=== PATIENT | male | born 1965 | race Caucasian/White ===

== ENCOUNTER 2017-09-12 20:28 | Emergency (ER) | payer SELFPAY ==
--- NOTE | 2017-09-12 20:35 | ED.PDOC ---
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 No pain on weight bearing. Timing/Duration: just prior to arrival, this evening Severity: moderate Location: feet - right Improving Factors: nothing Worsening Factors: movement Associated Symptoms: other - see hpi Allergies/Adverse Reactions: Allergies NO KNOWN ALLERGY Allergy (Verified 09/12/17 20:43) Home Medications: Ambulatory Orders NK [NK] 09/12/17 Review of Systems - Review of Systems All other Systems: Reviewed and Negative, No Change from Baseline Family Medical History - Family History Father Family History: Unknown Physical Exam - Physical Exam General Appearance: Alert, Comfortable, No apparent distress Eyes, Ears, Nose, Throat Exam: normal ENT inspection Neck: non-tender, full range of motion, supple Cardiovascular/Chest: normal peripheral pulses, regular rate, rhythm, no murmur Respiratory: chest non-tender, lungs clear, normal breath sounds Gastrointestinal/Abdominal: non tender, soft, no organomegaly Back Exam: normal inspection Extremity: other - 3 cm laceration top of foot Neurologic: no motor/sensory deficits, alert, oriented x 3 Skin Exam: warm/dry Skin Problem Location: lower extremities - right foot Skin Character: other - laceration Procedures - Laceration/Wound Repair Right Foot Wound Length (cm): 3 Wound's Depth, Shape: linear Wound Explored: foreign body removed - 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 from 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 Copy, Patient Portal Self Enrollment Instructions: DI for Laceration Repair, How to Care for a Laceration After Repair Home Medications: Ambulatory Orders NK [NK] 09/12/17 Additional Instructions: REMOVAL OF SUTURES 09/24/2017 [facility] ER
[2017-09-12] MEDS ORDERED: TETANUS,DIPHTHERIA,PERTUSSIS 1 EA SYG IM ONE (20:44)
[2017-09-12] MEDS ORDERED: CEPHALEXIN MONOHYDRATE 500 MG CAP PO ONE (20:45)
[2017-09-12] MEDS ORDERED: LIDOCAINE 1% 10 ML VIAL INJ ONE (20:48)
[2017-09-12] MEDS ORDERED: CHLORHEXIDINE GLUCONATE 4 % 15 ML UD TOP ONE (20:51)
[2017-09-12] MEDS ORDERED: NEOMYCIN-BACITRACIN-POLYMYXIN 0.9 GM UD TOP ONE (21:02)
[2017-09-12] MEDS ORDERED: HYDROCOD/APAP 7.5/325 (ER DISP) #3 TAB PO ONE (21:18)
[2017-09-12 21:45] VITALS: TEMP 98.3
[2017-09-12 21:57] VITALS: BP 126/75; O2SAT 99
== END 2017-09-12 21:35 | disposition home or self-care (01) ==
LOC: ER 20:28
DX: S91.311A Laceration without foreign body, right foot, initial encounter (principal); Z23 Encounter for immunization; W29.8XXA Contact with other powered hand tools and household machinery, initial encounter; Y92.89 Other specified places as the place of occurrence of the external cause

== ENCOUNTER 2020-02-19 19:24 | Emergency (ER) | payer SELFPAY ==
[~2020-02-19 19:24] MED LIST: EPINEPHrine INJ 0.1 MG/ML 10 ML SYG ONE
--- NOTE | 2020-02-19 19:44 | ED.PDOC ---
History of Present Illness - General Chief Complaint: Trauma Stated Complaint: left hip pain from fall, abd pain- ascites Time Seen by Provider: 02/19/20 19:35 Source: patient, EMS notes reviewed, EMS Exam Limitations: no limitations - History of Present Illness Initial Comments: Pt is a 55 yo male with PMH of alcoholism who presents to ED after GLF at home and was unable to get up due to left hip pain. Pt states he lives with his mother and states he has not been told he has cirrhosis or ascites, but has not seen a physician in several years. States he was in his house and suddenly got light headed and passed out. He remembers waking up on the floor and was unable to get up so family called EMS. He denies JHA, neck or back pain, nausea, CP or SOB. Allergies/Adverse Reactions: Allergies NO KNOWN ALLERGY Allergy (Verified 03/21/19 13:35) Home Medications: Ambulatory Orders NK 09/12/17 Review of Systems - Review of Systems Constitutional: Denies: chills, fever EENTM: Denies: nose congestion, throat pain Respiratory: Denies: cough, short of breath Cardiology: States: syncope. Denies: chest pain, edema, palpitations Gastrointestinal/Abdominal: Denies: diarrhea, nausea, vomiting Genitourinary: Denies: dysuria, frequency, hematuria Musculoskeletal: States: other - left hippain. Denies: back pain Skin: States: other - abrsions to LUE Neurological: Denies: headache, paresthesia All other Systems: Reviewed and Negative Past Medical History (General) - Patient Medical History Hx Seizures: No Hx Stroke: No Hx Dementia: No Hx Asthma: No Hx of COPD: No Hx Cardiac Disorders: No Hx Congestive Heart Failure: No Hx Pacemaker: No Hx Hypertension: No Hx Thyroid Disease: No Hx Diabetes: No Hx Gastroesophageal Reflux: No Hx Renal Disease: No Hx Cancer: No Hx of HIV: No Hx MRSA: No Surgical History: noncontributory - Vaccination History Hx Tetanus, Diphtheria Vaccination: No Hx Influenza Vaccination: No - Social History Hx Tobacco Use: Yes Hx Alcohol Use: Yes Hx Substance Use: No Hx Substance Use Treatment: No Hx Depression: No - Female History Patient : No Family Medical History - Family History Father Family History: Unknown Physical Exam - Physical Exam General Appearance: Alert, No apparent distress, Other - Pt is pale appearing and jaundiced. Has distended abdomen c/w ascites Eye Exam: bilateral scleral icterus Ears, Nose, Throat: normal pharynx Neck: non-tender, full range of motion, supple, other - No vertebral tenderness to neck or back Respiratory: chest non-tender, lungs clear, normal breath sounds, no respiratory distress, no accessory muscle use Cardiovascular/Chest: regular rate, rhythm, other - Trace pretibial edema bilaterally Gastrointestinal/Abdominal: other - Tense ascites. No abdominal tenderness Back Exam: no vertebral tenderness Extremity: other - Pt has FROM in BUE. There are abrasions to lateral left shoulder and upper arm. There is tenderness to left hip. He does have FROM in BLE Neurologic: no motor/sensory deficits, alert, normal mood/affect Skin Exam: jaundice, pallor Progress - Progress Progress: 02/19/20 20:15 Pt sister in law arrived to ED. She states that he was told 15 years ago that he has cirrhosis and liver disease and if he did not stop drinking alcohol he would from it. He has continued to drink alcohol daily and has been admitted to [facility] several times for hepatic encephalopathy, GI bleed and other complications of cirrhosis. 02/19/20 20:24 Pt has known h/o cirrhosis. Presents after syncopal episode at home. he is vomiting dark, coffee ground emesis x1 that is gastriccult positive. I have started Protonic and Octreotiide. Plan discussed with patient and sister in law to transfer for syncope, GI bleed and he agrees with plan of care. 02/19/20 21:23 D/W Dr. Ramires at [facility] via transfer line. Accepts transfer. Requests starting PRBC and can give in route. 02/19/20 21:59 Pt had mild tachycardia, but otherwise stable VS in ED visit. Protonix and octreotide started due to cirrrhosis with upper GI bleed. Pt was accepted for transfer and we were waiting to get blood to initiate blood transfusion prior to transport and patient lost pulse. Was in [facility]A. Please see ACLS flow sheet for full details. he was given multiple doses of Epi. He had large amount of blood coming from stomach into mouth during CPR. Suctioned frequently and intubated with glidescope with 8.0 ETT. Patient never had return of circulation and time of pronounced at 2154. I updated family here during resuscitation and she voiced that the family had been expecting this for some time due to his poor health. - Results/Orders Results/Orders: CT BRAIN TECHNIQUE: Contiguous axial CT images obtained through the brain without IV contrast. This exam was performed according to our department optimization program which includes automated exposure control, adjustment of the mA and/or kv according to patient size and/or use of iterative reconstruction technique. FINDINGS: The ventricles and sulci are mildly prominent. Minimal microvascular ischemic changes. No mass lesions. No acute hemorrhage. Atherosclerotic calcifications. Old lacunar infarct in the left caudate. There is mucosal thickening/opacification within multiple right mastoid air cells. The appearance is slightly improved compared to the previous study. No depressed calvarial fractures. IMPRESSION: No acute intracranial abnormality is identified. There is mucosal thickening/opacification within multiple right mastoid air cells. The appearance is slightly improved compared to the previous study. CT C SPINE IMPRESSION: No acute cervical spine injury. Stable chronic degenerative changes result in central canal and neural foraminal stenoses as described. LEFT SHOULDER No LUE fracture or dislocation. Possible left 8th rib fracture LEFT ELBOW EXAM DESCRIPTION: Elbow, left 2 Views CLINICAL HISTORY: 55 years Male trauma COMPARISON: None. TECHNIQUE: Two views of the left elbow. FINDINGS: The lateral view is suboptimal. Evaluation of the elbow fat pads is therefore suboptimal. No fractures or dislocations are identified. Atherosclerotic calcifications. IMPRESSION: No acute fracture is identified. PELVIS/LEFT HIP EXAM DESCRIPTION: Hip, left 2 Views CLINICAL HISTORY: 55 years Male trauma COMPARISON: None. TECHNIQUE: Two views of the left hip. FINDINGS: There is some irregularity along the greater trochanter which is likely chronic. No definite acute fracture is identified. No evidence for hip dislocation. There are atherosclerotic calcifications. IMPRESSION: There is some irregularity along the greater trochanter which is likely chronic. No definite acute fracture is identified. CT or MRI could be obtained to better evaluate if there is continued clinical concern. CHEST XRAY EXAM DESCRIPTION: Chest,1 View CLINICAL HISTORY: 55 years Male trauma COMPARISON: 03/21/2019. FINDINGS: Poor inspiratory effort. The cardiomediastinal silhouette appears unremarkable. There is elevation of the right hemidiaphragm which is new since the previous study. There is mild opacity at the right lung base likely from atelectasis but changes from pneumonia or contusion are not totally excluded. No large pleural effusion is identified. No pneumothorax. There is a fracture involving the lateral left seventh rib which may be old. Clinical correlation recommended. IMPRESSION: There is elevation of the right hemidiaphragm which is new since the previous study. There is opacity at the right lung base likely from atelectasis but changes from pneumonia or contusion are not totally excluded on this study. Lateral left seventh rib fracture which may be chronic. Clinical correlation is recommended. - EKG/XRAY/CT Comments: sinus tachycardia, rate 115, normal intervals, nonsspecific ST abnor mality Procedures - Intubation Time of Intubation: 21:35 Intubation Method: orotracheal Tube Size (cm): 8.0 Breath Sounds after Intubation: equal Intubation Complications: no complications Post Intubation Xray: No - pronounced - Additional Procedures Additional Procedures: CPR Departure - Departure Clinical Impression: Symptomatic anemia, Upper GI bleed, Cardiac arrest Syncope Qualifiers: Syncope type: unspecified Qualified Code(s): R55 - Syncope and collapse Cirrhosis Qualifiers: Hepatic cirrhosis type: alcoholic cirrhosis Ascites presence: with ascites Qualified Code(s): K70.31 - Alcoholic cirrhosis of liver with ascites Contusion of left hip Qualifiers: Encounter type: initial encounter Qualified Code(s): S70.02XA - Contusion of left hip, initial encounter Time of Disposition: 21:54 Disposition: Departure Forms: ED Discharge - Pt. Copy, Patient Portal Self Enrollment Instructions: DI for Trauma Home Medications: Ambulatory Orders NK 09/12/17 Comments: Pt in ED prior to being transferred Critical Care Note - Critical Care Note Total Time (mins): 45 Comments: syncope, symptomatic anemia, GI bleed resuscitation Transfer to Outside Facility - Transfer Information Decision to Transfer Date: 02/19/20 Decision to Transfer Time: 21:27 Reason for Transfer: required specialist not available Accepting Provider:: Dr. Ramires, ED physician Accepting Facility: Pt in ED prior to being ransferred
[2020-02-19] MEDS ORDERED: SODIUM CHLORIDE 0.9% 1000ML 500 ML IVS ONE (19:53)
[2020-02-19] MEDS ORDERED: DEXAMETHASONE INJ 10 MG/ML VIAL IV ONE (20:13)
[2020-02-19] MEDS ORDERED: PANTOPRAZOLE INJECTION 80 MG in SODIUM CHLORIDE 0.9% 100ML 80 ML IVPB ONE (20:19)
[2020-02-19] MEDS ORDERED: OCTREOTIDE ACETATE 500 MCG in SODIUM CHLORIDE 0.9% 100ML 100 ML IVPB ONE (20:22)
[2020-02-19] MEDS ORDERED: OCTREOTIDE ACETATE 50 MCG in SODIUM CHLORIDE 0.9% 100ML 100 ML IVPB SCH (20:30)
[2020-02-19] MEDS ORDERED: ONDANSETRON INJ 4 MG/2 ML VIAL IV ONE (20:42)
[2020-02-19] MEDS ORDERED: OCTREOTIDE ACETATE 100 MCG/ML VIAL ONE (20:56)
[2020-02-19] MEDS ORDERED: SODIUM CHLORIDE 0.9% 100ML 100 ML IVPB ONE ×2 (20:56→20:57)
[2020-02-19] MEDS ORDERED: PANTOPRAZOLE SODIUM IV 40 MG VIAL ONE (20:57)
--- NOTE | 2020-02-19 21:04 | RAD ---
EXAM DESCRIPTION: Elbow, left 2 Views CLINICAL HISTORY: 55 years Male trauma COMPARISON: None. TECHNIQUE: Two views of the left elbow. FINDINGS: The lateral view is suboptimal. Evaluation of the elbow fat pads is therefore suboptimal. No fractures or dislocations are identified. Atherosclerotic calcifications. IMPRESSION: No acute fracture is identified. Electronically signed by: Raphael Pineda MD 02/19/2020 9:03 PM CDT
--- NOTE | 2020-02-19 21:05 | CT ---
PROCEDURE: CT Cervical Spine CLINICAL HISTORY: 55 years Male trauma TECHNIQUE: Contiguous axial CT images obtained through the cervical spine without IV contrast. Coronal and sagittal reformatted images also provided. This CT exam was performed according to our departmental dose-optimization program, which includes one or more of the following dose reduction techniques: automated exposure control, adjustment of the mA and/or kV according to patient size, and/or use of iterative reconstruction technique. COMPARISON: 03/21/2019 FINDINGS: There is no acute cervical fracture. Again seen are moderate chronic multilevel degenerative changes with partial fusion across the C3-C4 disc space and left facet. Slight retrolisthesis of C5 on C6. No aggressive osseous lesion. Carotid atherosclerosis without acute paraspinal hemorrhage. There is a new layering right apical pleural effusion. Again seen is right inferior mastoiditis. The proximal esophagus is patulous. Chronic degenerative changes result in the following: At C2-C3, there is severe right neural foraminal stenosis, stable. At C3-C4, there is severe right and moderate left neural foraminal stenosis, stable. At C4-C5, there is severe right and mild left neural foraminal stenosis, stable. At C5-C6, there is slight central canal stenosis with severe bilateral neural foraminal stenosis, stable. At C6-C7, there is mild central canal stenosis with markedly severe right and moderate left neural foraminal stenosis, stable. At C7-T1, there is mild right neural foraminal stenosis, stable. IMPRESSION: No acute cervical spine injury. Stable chronic degenerative changes result in central canal and neural foraminal stenoses as described. Electronically signed by: Jordyn Maxwell MD 02/19/2020 9:04 PM CDT
--- NOTE | 2020-02-19 21:08 | CT ---
PROCEDURE: Head CLINICAL HISTORY: 55 years Male trauma COMPARISON: 03/21/2019. TECHNIQUE: Contiguous axial CT images obtained through the brain without IV contrast. This exam was performed according to our department optimization program which includes automated exposure control, adjustment of the mA and/or kv according to patient size and/or use of iterative reconstruction technique. FINDINGS: The ventricles and sulci are mildly prominent. Minimal microvascular ischemic changes. No mass lesions. No acute hemorrhage. Atherosclerotic calcifications. Old lacunar infarct in the left caudate. There is mucosal thickening/opacification within multiple right mastoid air cells. The appearance is slightly improved compared to the previous study. No depressed calvarial fractures. IMPRESSION: No acute intracranial abnormality is identified. There is mucosal thickening/opacification within multiple right mastoid air cells. The appearance is slightly improved compared to the previous study. Electronically signed by: Raphael Pineda MD 02/19/2020 9:07 PM CDT
--- NOTE | 2020-02-19 21:11 | RAD ---
EXAM DESCRIPTION: Chest,1 View CLINICAL HISTORY: 55 years Male trauma COMPARISON: 03/21/2019. FINDINGS: Poor inspiratory effort. The cardiomediastinal silhouette appears unremarkable. There is elevation of the right hemidiaphragm which is new since the previous study. There is mild opacity at the right lung base likely from atelectasis but changes from pneumonia or contusion are not totally excluded. No large pleural effusion is identified. No pneumothorax. There is a fracture involving the lateral left seventh rib which may be old. Clinical correlation recommended. IMPRESSION: There is elevation of the right hemidiaphragm which is new since the previous study. There is opacity at the right lung base likely from atelectasis but changes from pneumonia or contusion are not totally excluded on this study. Lateral left seventh rib fracture which may be chronic. Clinical correlation is recommended. Electronically signed by: Raphael Pineda MD 02/19/2020 9:10 PM CDT
--- NOTE | 2020-02-19 21:13 | RAD ---
EXAM DESCRIPTION: Hip, left 2 Views CLINICAL HISTORY: 55 years Male trauma COMPARISON: None. TECHNIQUE: Two views of the left hip. FINDINGS: There is some irregularity along the greater trochanter which is likely chronic. No definite acute fracture is identified. No evidence for hip dislocation. There are atherosclerotic calcifications. IMPRESSION: There is some irregularity along the greater trochanter which is likely chronic. No definite acute fracture is identified. CT or MRI could be obtained to better evaluate if there is continued clinical concern. Electronically signed by: Raphael Pineda MD 02/19/2020 9:12 PM CDT
--- NOTE | 2020-02-19 21:15 | RAD ---
EXAM DESCRIPTION: Pelvis CLINICAL HISTORY: 55 years Male trauma COMPARISON: None. TECHNIQUE: Single AP view of the pelvis. FINDINGS: The study is suboptimal from patient body habitus. No acute fractures or dislocations are identified. No osseous destructive lesions. Atherosclerotic calcifications. IMPRESSION: No acute fracture is identified. CT or MRI could be obtained to better evaluate the hips if there is continued clinical concern. Electronically signed by: Raphael Pineda MD 02/19/2020 9:14 PM CDT
--- NOTE | 2020-02-19 21:20 | RAD ---
EXAM DESCRIPTION: Shoulder, left 2 or More Views CLINICAL HISTORY: 55 years Male trauma COMPARISON: None. TECHNIQUE: Three views of the left shoulder. FINDINGS: There is a fracture of the posterior lateral left eighth rib which appears acute on this study. The fracture is better visualized on the x-ray shoulder study compared to the chest x-ray study. Clinical correlation is recommended. No fracture or dislocation involving the shoulder. IMPRESSION: There appears to be an acute fracture involving the lateral left eighth rib. Clinical correlation is recommended. No fracture or dislocation is identified involving the shoulder. Electronically signed by: Raphael Pineda MD 02/19/2020 9:19 PM CDT
[2020-02-19] MEDS ORDERED: SODIUM CHLORIDE 0.9% 500ML 500 ML IVS SCH (21:30)
[2020-02-19 23:36] VITALS: BP 82/54; TEMP 96.5; O2SAT 93
== END 2020-02-19 21:54 | disposition expired ==
LOC: ER 19:24
DX: K92.2 Gastrointestinal hemorrhage, unspecified (principal); R55 Syncope and collapse; K70.31 Alcoholic cirrhosis of liver with ascites; I46.9 Cardiac arrest, cause unspecified; M25.552 Pain in left hip; S40.212A Abrasion of left shoulder, initial encounter; S40.812A Abrasion of left upper arm, initial encounter; S70.02XA Contusion of left hip, initial encounter; D64.9 Anemia, unspecified; W18.30XA Fall on same level, unspecified, initial encounter; Y92.009 Unspecified place in unspecified non-institutional (private) residence as the place of occurrence of the external cause
CPT/HCPCS: 36415; 70450; 71045; 72125; 72170; 73030; 73070; 73502; 80053; 80320; 83690; 84484; 85025; 85610; 85730; 92950; 93005; 94770; J2354; J2405; J7050